=== PATIENT | female | born 1955 | race Caucasian/White ===

== ENCOUNTER 2023-02-14 09:28 | Emergency (ER) | payer MEDICARE, MEDICAID ==
[~2023-02-14] VITALS: Ht 142.2 cm; Wt 78.5 kg
[~2023-02-14 09:28] MED LIST: IBUPROFEN
[2023-02-14] MEDS ORDERED: AMLO-212 PO (09:45)
[2023-02-14] MEDS ORDERED: ROSU5TAB PO (09:45)
[2023-02-14] MEDS ORDERED: CETI10TA18 PO (09:45)
[2023-02-14] MEDS ORDERED: BENA20TA9 PO (09:45)
--- NOTE | 2023-02-14 09:46 | NUR ---
pt. in room seen and examined by
--- NOTE | 2023-02-14 09:48 | NUR ---
Pt. [id number], with dtr at bedside
[2023-02-14] MEDS ORDERED: diphenhydrAMINE 25 MG CAP PO ONE ×2 (10:00→10:01)
--- NOTE | 2023-02-14 10:03 | NUR ---
labs in process
[2023-02-14 10:13] LABS: HEMATOCRIT 38.8 % (31.2-41.9); MEAN CORPUSCULAR HEMOGLOBIN 30.4 uug (24.7-32.8); MEAN CORPUSCULAR VOLUME 91.3 fL (75.5-95.3); PLATELET COUNT (AUTO) 255 K/uL (179-408)
[2023-02-14] MEDS ORDERED: KETOROLAC TROMETHAMINE 15 MG INJ ONE (10:13)
[2023-02-14] MEDS ORDERED: ACETAMINOPHEN 325 MG TABLET ONE (10:13)
[2023-02-14] MEDS ORDERED: NAPROXEN 500 MG TABLET PO ONE (10:15)
[2023-02-14] MEDS ORDERED: ACETAMINOPHEN 325 MG TABLET PO ONE (10:15)
[2023-02-14] MEDS ORDERED: KETOROLAC TROMETHAMINE 15 MG INJ IM ONE (10:15)
[2023-02-14] MEDS ORDERED: NAPROXEN 500 MG TABLET ONE (10:18)
[2023-02-14 10:28] LABS: BILIRUBIN,TOTAL 0.3 mg/dL (0.2-1.0); CREATININE 0.6 mg/dL (0.6-1.3); POTASSIUM 4.1 mmol/L (3.5-5.1); TOTAL PROTEIN, SERUM 7.5 g/dL (6.4-8.2)
[2023-02-14] MEDS ORDERED: VALA100026 PO (10:37)
[2023-02-14] MEDS ORDERED: NAPR-1192 PO (10:40)
[2023-02-14 10:45] VITALS: BP 140/80
--- NOTE | 2023-02-14 10:45 | NUR ---
Patient discharged to home in stable condition. Written and verbal after care instructions given. Patient verbalizes understanding of instructions. Stressed follow up or return to ER for worsening s/s.
== END 2023-02-14 10:46 | disposition home or self-care (01) ==
LOC: ER 09:28
DX: R21 Rash and other nonspecific skin eruption (principal); I10 Essential (primary) hypertension; G89.29 Other chronic pain; M54.9 Dorsalgia, unspecified; E78.5 Hyperlipidemia, unspecified; Z79.899 Other long term (current) drug therapy
CPT/HCPCS: 99284; 80053; 85025; 36415; Q0163; J1885; A4663